=== PATIENT | female | born 1955 | race Caucasian/White ===

== ENCOUNTER 2017-08-07 07:55 | Emergency (ER) | payer BC ==
[~2017-08-07] VITALS: Ht 154.9 cm; Wt 61.8 kg
[2017-08-07 08:31] LABS: BASO # 0.1 (0.0-0.2); BASO % 0.8 % (0.0-2.0); EOS % 0.2 % (0-4.0); GRAN # 6.8 (1.4-6.5); GRAN % 80.1 % (42.2-75.2); HEMATOCRIT 38.8 % (37.0-47.0); HEMOGLOBIN 13.1 g/dl (12.5-16.0); MEAN CELL VOLUME 88 fl (80.0-100.0); MEAN CORPUSCULAR HEMOGLOBIN 30 pg (27.0-31.0); MEAN CORPUSCULAR HGB CONC 34 g/dl (33.0-37.0); MEAN PLATELET VOLUME 10.9 fl (7.4-10.4); MONO # 0.6 (0.1-0.6); MONO % 6.5 % (1.7-9.3); PLATELET COUNT 193 K/mm3 (130-400); RED BLOOD COUNT 4.41 M/mm3 (4.10-5.30); REDCELL DISTRIBUTION WIDTH-CV 13.2 % (11.5-14.5)
[2017-08-07 08:43] LABS: CALCIUM 9.3 mg/dL (8.4-10.2); CREATININE, serum 0.61 mg/dL (0.52-1.25); POTASSIUM 4.1 mmol/L (3.4-5.0)
[2017-08-07 08:48] LABS: INFLUENZA A POSITIVE; INFLUENZA B NEGATIVE
[2017-08-07] MEDS ORDERED: TAMIFLU 75MG75 MG PO (09:03)
[2017-08-07] MEDS ORDERED: LEVAQUIN 5500 MG/TA1 PO (09:45)
[2017-08-07 09:49] VITALS: BP 147/97; PULSE 106; TEMP 99
== END 2017-08-07 09:50 | disposition home or self-care (01) ==
LOC: COL.ER 07:55
PROVIDERS: Physician Assistant
DX: J10.1 Influenza due to other identified influenza virus with other respiratory manifestations (principal); E11.9 Type 2 diabetes mellitus without complications; Z79.84 Long term (current) use of oral hypoglycemic drugs; Z79.82 Long term (current) use of aspirin
CPT/HCPCS: J2405; J7030

== ENCOUNTER → 2018-07-25 | Outpatient (CLI) | payer BC ==
[~2018-07-25] MED LIST: LEVAQUIN 5500 MG/TA1 PO; TAMIFLU 75MG75 MG PO
== END ==
LOC: MC.RAD 07:40
DX: Z12.31 Encounter for screening mammogram for malignant neoplasm of breast (principal)

== ENCOUNTER 2024-02-28 06:52 | Day surgery (SDC) | payer MEDICARE, BC ==
[~2024-02-28] VITALS: Ht 154.9 cm; Wt 64.5 kg
[~2024-02-28 06:52] MED LIST changes: +LR 1,000 ML IV SCH; +Ondansetron 4 MG/2 ML VIAL IV PRN
[2024-02-28] MEDS ORDERED: Glycopyrrolate 0.2 MG/ML 1 ML VIAL ONE (08:15)
[2024-02-28] MEDS ORDERED: Lidocaine PF 2% (20 MG/ML) 5 ML VIAL ONE (08:15)
[2024-02-28] MEDS ORDERED: PROTONIX 40MG T40 MG PO (08:26)
[2024-02-28] MEDS ORDERED: GLUCOTROL10 MG PO (08:26)
[2024-02-28] MEDS ORDERED: LODINE400 MG PO (08:27)
[2024-02-28] MEDS ORDERED: NORVASC 5MG5 MG/TAB PO (08:27)
[2024-02-28] MEDS ORDERED: GLUCOPHAGE XR500 M1 PO (08:28)
[2024-02-28] MEDS ORDERED: ZYRTEC 10MG10 MG PO (08:28)
[2024-02-28] MEDS ORDERED: VALTREX 50500 MG/TAB PO (08:29)
[2024-02-28] MEDS ORDERED: DIOVAN 160MG160 MG PO (08:30)
[2024-02-28] MEDS ORDERED: VITAMINC1000TA PO (08:31)
[2024-02-28] MEDS ORDERED: VITAMIN D31000 IU PO (08:31)
[2024-02-28] MEDS ORDERED: OCUVITE1 TA1 PO (08:32)
[2024-02-28 08:35] VITALS: BP 137/78; PULSE 82; TEMP 97.3
[2024-02-28 09:03] VITALS: BP 121/61; PULSE 89; TEMP 97
--- NOTE | 2024-02-28 09:03 | NUR ---
PATIENT AMBULATED TO CHAIR WITH STEADY GAIT, ASSIST OF 2. ALERT AND AWAKE. DENIES PAIN, NAUSEA AND SHORTNESS OF BREATH. BREATHING REGULAR AND UNLABORED ON ROOM AIR. SKIN WARM AND DRY. IV IN PLACE. NURSE HANDOFF COMPLETED IN ROOM. SEE CHART FOR VITAL SIGNS. PATIENT HAD WATER AND JELLO. BOTH TOLERATED WELL, NO DYSPHAGIA. CALL LIGHT IN REACH. SPOUSE PRESENT IN ROOM.
[2024-02-28 09:15] VITALS: BP 129/53; PULSE 76
[2024-02-28 09:20] VITALS: BP 134/71; PULSE 80
--- NOTE | 2024-02-28 09:45 | NUR ---
0918: DISCHARGE TEACHING COMPLETED WITH PRINTED EDUCATION AND INSTRUCTIONS SENT HOME WITH PATIENT. PATIENT VERBALIZED UNDERSTANDING OF TEACHING. 0924: IV REMOVED. GAUZE AND COBAN PLACED OVER SITE. 0938: MET WITH PATIENT AND SPOUSE IN ROOM TO DISCUSS PROCEDURE. 0945: PATIENT DISCHARGED HOME WITH [facility] (SPOUSE) TRANSPORT.
== END 2024-02-28 09:45 | disposition home or self-care (01) ==
LOC: SDCO 06:52
DX: K22.2 Esophageal obstruction (principal); K29.70 Gastritis, unspecified, without bleeding; K44.9 Diaphragmatic hernia without obstruction or gangrene; E11.9 Type 2 diabetes mellitus without complications; Z79.84 Long term (current) use of oral hypoglycemic drugs
CPT/HCPCS: C1726; J2704; J7120